=== PATIENT | female | born 1960 | race American Indian/Alaskan Native ===

== ENCOUNTER 2017-03-27 00:40 | Emergency (ER) | payer OTHER ==
[2017-03-27 00:51] VITALS: TEMP 98; BMI 33.3
[2017-03-27] MEDS ORDERED: Lidocaine 1% Inj (20ml) ONE (01:33)
--- NOTE | 2017-03-27 02:13 | ED PDOC ---
Arrival/HPI - General Historian: Patient - History of Present Illness Time/Duration: Prior to Arrival Symptom Onset: Sudden Symptom Course: Unchanged <Praneeth De Los Santos - Last Filed: 03/27/17 02:31> <Jp Rosario - Last Filed: 03/27/17 02:46> - General Chief Complaint: Abnormal Skin Integrity Time Seen by Provider: 03/27/17 02:07 - History of Present Illness Narrative History of Present Illness (Text): 57 female presents to the emergency department with a laceration. Pt states that she was baking and trying to open up a can when it slipped and cut the side of her R 5th finger. Denies taking anything at home for the pain. Denies any headache, dizziness, f/c, shortness of breath, chest pain, abd pain, n/v/d. (Praneeth De Los Santos) Past Medical History - Provider Review Nursing Documentation Reviewed: Yes - Reproductive Menopause: Yes - Cardiac Hx Cardiac Disorders: Yes Hx Hypertension: Yes - Pulmonary Hx Respiratory Disorders: Yes Hx Asthma: Yes - Neurological Hx Neurological Disorder: No - HEENT Hx HEENT Disorder: No - Renal Hx Renal Disorder: No - Endocrine/Metabolic Hx Endocrine Disorders: No - Hematological/Oncological Hx Blood Disorders: No - Integumentary Hx Dermatological Disorder: No - Musculoskeletal/Rheumatological Hx Musculoskeletal Disorders: Yes Hx Spinal Stenosis: Yes Other/Comment: tendonitis - Gastrointestinal Hx Gastrointestinal Disorders: Yes Other/Comment: hernia - Genitourinary/Gynecological Hx Genitourinary Disorders: No - Psychiatric Hx Psychophysiologic Disorder: No Hx Substance Use: No - Surgical History Hx Appendectomy: Yes Hx Orthopedic Surgery: Yes (right wrist) Other/Comment: Benign left breast mass removed. Myomectomy - Anesthesia Hx Anesthesia: Yes Hx Anesthesia Reactions: No <Praneeth De Los Santos - Last Filed: 03/27/17 02:31> Family/Social History Family/Social History: No Known Family HX Smoking Status: Never Smoked Hx Alcohol Use: No Hx Substance Use: No <Praneeth De Los Santos - Last Filed: 03/27/17 02:31> Allergies/Home Meds <Praneeth De Los Santos - Last Filed: 03/27/17 02:31> <Jp Rosario - Last Filed: 03/27/17 02:46> Allergies/Adverse Reactions: Allergies ciprofloxacin [From Cipro] Allergy (Verified 03/27/17 00:51) ANAPHYLAXIS Home Medications: Home Meds Medication Instructions Recorded Confirmed Albuterol HFA [Ventolin HFA 90 2 puff IH PRN PRN 03/27/17 03/27/17 mcg/actuation (8 g)] Review of Systems - Physician Review All systems were reviewed & negative as marked: Yes - Review of Systems Respiratory: absent: SOB, Cough Cardiovascular: absent: Chest Pain, Palpitations Gastrointestinal: absent: Abdominal Pain Skin: Laceration (R 5th digit ) <Praneeth De Los Santos - Last Filed: 03/27/17 02:31> Physical Exam Vital Signs Reviewed: Yes Temperature: Afebrile Blood Pressure: Hypertensive Pulse: Regular Respiratory Rate: Normal Appearance: Positive for: Well-Appearing, Non-Toxic, Comfortable Pain Distress: Mild Mental Status: Positive for: Alert and Oriented X 3 - Systems Exam Head: Present: Atraumatic, Normocephalic Pupils: Present: PERRL Extroacular Muscles: Present: EOMI Conjunctiva: Present: Normal Mouth: Present: Moist Mucous Membranes Neck: Present: Normal Range of Motion Respiratory/Chest: Present: Clear to Auscultation, Good Air Exchange. No: Respiratory Distress, Accessory Muscle Use Cardiovascular: Present: Regular Rate and Rhythm, Normal S1, S2. No: Murmurs Abdomen: Present: Normal Bowel Sounds. No: Tenderness, Distention, Peritoneal Signs Upper Extremity: Present: Normal Inspection, Tenderness (R hand 5th digit medial side aprox 2 cm clean laceration ). No: Cyanosis, Edema, Swelling, Erythema Lower Extremity: Present: Normal Inspection. No: Edema Skin: Present: Warm, Dry, Normal Color. No: Rashes Psychiatric: Present: Alert, Oriented x 3, Normal Insight, Normal Concentration <Praneeth De Los Santos - Last Filed: 03/27/17 02:31> Medical Decision Making <Praneeth De Los Santos - Last Filed: 03/27/17 02:31> <Jp Rosario - Last Filed: 03/27/17 02:46> ED Course and Treatment: Impression: 57 female presents to the emergency department with a laceration. Differential Diagnosis included but are not limited to: laceration Plan: - laceration repair via sutures - Reassess and disposition Progress Notes: Repaired laceration of R 5th digit with 5'0 Nylon. 5 interrupted sutures placed. Patient tolerated procedure well. Resting comfortably in bed. Denies any pain. On reevaluation the patient feels better and is in no acute distress. I have discussed the results and plan with the patient, who expresses understanding. Patient given the opportunity to ask question, all questions were answered and there is agreement with the plan to discharge the patient home . Patient is stable for discharge. Patient was instructed to follow up with physician/clinic in 7 days for suture removal. (Praneeth De Los Santos) 03/27/17 02:44 Patient seen and evaluated with resident. Agree with HPI, clinical findings, plan and treatment. A 57 year old female who presents to the emergency department for evaluation of laceration to right 5th digit s/p cut which she sustained while opening a can. Laceration was repaired by resident with 5 interrupted sutures. Patient was stable for discharge. Advised to present to emergency department or f/u with PMD after 7 days for suture removal. (Jp Rosario) - Medication Orders Current Medication Orders: Discontinued Medications Lidocaine HCl (Lidocaine 1% (20ml)) Confirm Administered Dose 20 ml .ROUTE .STK- MED ONE Stop: 03/27/17 01:34 Last Admin: 03/27/17 01:44 Dose: Tetanus/Reduced Diphtheria/Acell Pertussis (Boostrix Vaccine Inj) 0.5 ml IM .ONCE ONE Stop: 03/27/17 02:17 Last Admin: 03/27/17 02:29 Dose: 0.5 ml Procedure: Wound Repair - Time Out Time Out: Side verified, Site verified, Patient ID confirmed, Sterile procedures obs. - Consent Obtained Consent obtained: Verbal - Performed by Performed by: Mid-level Provider - Indications Indication(s):: Laceration - Location Finger:: Right, Little Shape:: Linear Dimensions Length cm: 2cm Depth:: Epidermis - Anesthetic Technique Anesthetic Technique: Local Local/Regional Anesthetic:: Lidocaine 1% - Debris Debris:: None - Irrigated Irrigated with ml of normal saline: 500 - Complexity Complexity:: Simple (one layer) - Wound repair method Sutures:: # (5), Size (5.0), Type (nylon ), Technique (interrupted ) - Patient tolerated procedure Patient Tolerated Procedure:: Well <Praneeth De Los Santos - Last Filed: 03/27/17 02:31> <Praneeth De Los Santos - Last Filed: 03/27/17 02:31> - PA / ORE TESTER / Resident Statement / has reviewed & agrees with the documentation as recorded. / has examined the patient and agrees with the treatment plan. <Jp Rosario - Last Filed: 03/27/17 02:46> - Scribe Statement Kristin Mota Provider Scribe Attestation: All medical record entries made by the Scribe were at my direction and personally dictated by me. I have reviewed the chart and agree that the record accurately reflects my personal performance of the history, physical exam, medical decision making, and the department course for this patient. I have also personally directed, reviewed, and agree with the discharge instructions and disposition. (Jp Rosario) Disposition/Present on Arrival - Present on Arrival Any Indicators Present on Arrival: No History of DVT/PE: No History of Uncontrolled Diabetes: No Urinary Catheter: No History of Decub. Ulcer: No History Surgical Site Infection Following: None - Disposition Have Diagnosis and Disposition been Completed?: Yes Disposition Time: 02:20 Patient Plan: Discharge <Praneeth De Los Santos - Last Filed: 03/27/17 02:31> <Jp Rosario - Last Filed: 03/27/17 02:46> - Disposition Diagnosis: Laceration of finger Disposition: HOME/ ROUTINE Condition: IMPROVED Additional Instructions: Tiana Rosenberg, thank you for letting us take care of you today. Your provider was Dr Palmer. You were treated for laceration to finger. The emergency medical care you received today was directed at your acute symptoms. If you were prescribed any medication, please fill it and take as directed. It may take several days for your symptoms to resolve. Return to the Emergency Department if your symptoms worsen, do not improve, or if you have any other problems. Please contact your doctor or call one of the physicians/clinics you have been referred to that are listed on the Patient Visit Information form that is included in your discharge packet. Bring any paperwork you were given at discharge with you along with any medications you are taking to your follow up visit. Our treatment cannot replace ongoing medical care by a primary care provider (PCP) outside of the emergency department. Thank you for allowing the [facility] team to be part of your care today. Wound care: change the dressing daily and may apply Bacitracin to affected area. Follow up with your PMD in 7 days for suture removal. If your symptoms worsen please coma back to the emergency department. Referrals: Tiffanie Rinaldi, [Primary Care Provider] - Follow up with primary
[2017-03-27] MEDS ORDERED: TDAP Vaccine 0.5 mL Syr IM ONE (02:16)
[2017-03-27 02:42] VITALS: BP 144/95; PULSE 60; RESP 18; O2SAT 98
== END 2017-03-27 02:43 | disposition home or self-care (01) ==
LOC: ED 00:40
DX: S61.216A Laceration without foreign body of right little finger without damage to nail, initial encounter (principal); W26.8XXA Contact with other sharp object(s), not elsewhere classified, initial encounter; Y93.G3 Activity, cooking and baking; Y92.89 Other specified places as the place of occurrence of the external cause; Z23 Encounter for immunization

== ENCOUNTER 2017-03-28 12:13 | Emergency (ER) | payer OTHER ==
[2017-03-28 12:13] VITALS: BMI 33.3
[2017-03-28 12:32] VITALS: BP 127/85; PULSE 80; RESP 17; TEMP 98.7; O2SAT 99
--- NOTE | 2017-03-28 12:54 | ED PDOC ---
Arrival/HPI - General Chief Complaint: Wound Check Time Seen by Provider: 03/28/17 12:48 - History of Present Illness Narrative History of Present Illness (Text): 03/28/17 12:54 57 y/o female, here for the wound check on the 5th digit on the rt. hand. Pt. stated that she heard "clicking" sound for 1-2 seconds earlier during the day which resolved, here for the wound check and evaluation, no headache or night, laceration sustained by the metal, no numbness or tingling, no other medical or psychological complaints. Past Medical History - Provider Review Nursing Documentation Reviewed: Yes - Cardiac Hx Cardiac Disorders: Yes Hx Hypertension: Yes - Pulmonary Hx Respiratory Disorders: Yes Hx Asthma: Yes - Neurological Hx Neurological Disorder: No - HEENT Hx HEENT Disorder: No - Renal Hx Renal Disorder: No - Endocrine/Metabolic Hx Endocrine Disorders: No - Hematological/Oncological Hx Blood Disorders: No - Integumentary Hx Dermatological Disorder: No - Musculoskeletal/Rheumatological Hx Musculoskeletal Disorders: Yes Hx Spinal Stenosis: Yes Other/Comment: tendonitis - Gastrointestinal Hx Gastrointestinal Disorders: Yes Other/Comment: hernia - Genitourinary/Gynecological Hx Genitourinary Disorders: No - Psychiatric Hx Psychophysiologic Disorder: No Hx Substance Use: No - Surgical History Hx Appendectomy: Yes Hx Orthopedic Surgery: Yes (right wrist) Other/Comment: Benign left breast mass removed. Myomectomy - Anesthesia Hx Anesthesia: Yes Family/Social History - Physician Review Nursing Documentation Reviewed: Yes Family/Social History: Unknown Family HX Smoking Status: Never Smoked Hx Alcohol Use: No Hx Substance Use: No Allergies/Home Meds Allergies/Adverse Reactions: Allergies ciprofloxacin [From Cipro] Allergy (Verified 03/28/17 12:28) ANAPHYLAXIS Home Medications: Home Meds Medication Instructions Recorded Confirmed Albuterol HFA [Ventolin HFA 90 2 puff IH PRN PRN 03/27/17 03/28/17 mcg/actuation (8 g)] Review of Systems - Review of Systems Constitutional: absent: Fatigue, Fevers Eyes: absent: Vision Changes ENT: absent: Hearing Changes Respiratory: absent: SOB, Cough Cardiovascular: absent: Chest Pain Gastrointestinal: absent: Abdominal Pain, Diarrhea, Nausea, Vomiting Skin: absent: Rash, Pruritis, Skin Lesions, Abscess, Ulcer, Cellulitis Neurological: absent: Headache, Dizziness, Focal Weakness, Gait Changes, Speech Changes, Facial Droop Psychiatric: absent: Anxiety, Depression, Suicidal Ideation Physical Exam Vital Signs Reviewed: Yes Vital Signs Temp Pulse Resp BP Pulse Ox 03/28/17 12:29 98.7 F 80 17 127/85 99 Temperature: Afebrile Blood Pressure: Normal Pulse: Regular Respiratory Rate: Normal Appearance: Positive for: Well-Appearing, Non-Toxic, Comfortable Pain Distress: None Mental Status: Positive for: Alert and Oriented X 3 - Systems Exam Head: Present: Atraumatic, Normocephalic Pupils: Present: PERRL Extroacular Muscles: Present: EOMI Conjunctiva: Present: Normal Mouth: Present: Moist Mucous Membranes Neck: Present: Normal Range of Motion Respiratory/Chest: Present: Clear to Auscultation, Good Air Exchange. No: Respiratory Distress, Accessory Muscle Use Cardiovascular: Present: Regular Rate and Rhythm, Normal S1, S2. No: Murmurs Abdomen: Present: Normal Bowel Sounds. No: Tenderness, Distention, Peritoneal Signs Back: Present: Normal Inspection Upper Extremity: Present: Normal Inspection, Other (Rt. hand: 5th MCPJ lateral aspect noted with 5 stiches, no bony tenderness or swelling, no audible clicking sound noted, wound healing well and dry, FROM without limitation, sensation intact, motor 5/5, +radial pulse, capillary refill< 2 seconds, neurovasclar intact. ). No: Cyanosis, Edema Lower Extremity: Present: Normal Inspection. No: Edema Neurological: Present: GCS=15, CN II-XII Intact, Speech Normal Skin: Present: Warm, Dry, Normal Color. No: Rashes Psychiatric: Present: Alert, Oriented x 3, Normal Insight, Normal Concentration Medical Decision Making ED Course and Treatment: 03/28/17 12:57 -xray -wound healing well and dry -Discharge home with education on keep the dressing dry and clean, follow up with your own pmd and hand specialist within 2 days, return to the ER for any new or worsening signs or symptoms. - PA / SECURITY SPECIALIST / Resident Statement MD/DO has reviewed & agrees with the documentation as recorded. Disposition/Present on Arrival - Present on Arrival Any Indicators Present on Arrival: No History of DVT/PE: No History of Uncontrolled Diabetes: No Urinary Catheter: No History of Decub. Ulcer: No History Surgical Site Infection Following: None - Disposition Have Diagnosis and Disposition been Completed?: Yes Diagnosis: Visit for wound check Disposition: HOME/ ROUTINE Disposition Time: 12:59 Patient Plan: Discharge Condition: GOOD Additional Instructions: Discharge home with education on keep the dressing dry and clean, follow up with your own pmd and hand specialist within 2 days, return to the ER for any new or worsening signs or symptoms. Referrals: [facility] at [facility] [place] [Outside] - Follow up with primary Errol Lee MD [Staff Provider] - Follow up with primary Forms: WORK NOTE
--- NOTE | 2017-03-28 13:31 | RAD ---
PROCEDURE: Right Hand Radiographs. HISTORY: 5th MCPJ laceration, hears clicking sound? COMPARISON: None available. FINDINGS: BONES: No acute displaced fracture. JOINTS: No dislocation. SOFT TISSUES: Unremarkable. No evidence of radiopaque foreign body. OTHER FINDINGS: None. IMPRESSION: No acute displaced fracture, dislocation, or significant joint effusion identified. If symptoms persist, or if there is continued clinical concern, x-ray follow-up in 7-10 days should be considered.
== END 2017-03-28 13:32 | disposition home or self-care (01) ==
LOC: ED 12:13
DX: Z51.89 Encounter for other specified aftercare (principal)

== ENCOUNTER 2017-04-04 20:51 | Emergency (ER) | payer OTHER ==
[2017-04-04 20:52] VITALS: BMI 33.3
[2017-04-04 20:56] VITALS: BP 145/98; PULSE 66; RESP 16; TEMP 98.6; O2SAT 99
--- NOTE | 2017-04-04 21:09 | ED PDOC ---
Arrival/HPI - General Chief Complaint: Suture/Staple Removal Time Seen by Provider: 04/04/17 20:53 Historian: Patient - History of Present Illness Narrative History of Present Illness (Text): 04/04/17 21:09 57 y.o. s/p laceration on 03/27/17 of the right pinky, which was sutured. She is here for suture removal. No fever or pus. Past Medical History - Cardiac Hx Cardiac Disorders: Yes Hx Hypertension: Yes - Pulmonary Hx Respiratory Disorders: Yes Hx Asthma: Yes - Neurological Hx Neurological Disorder: No - HEENT Hx HEENT Disorder: No - Renal Hx Renal Disorder: No - Endocrine/Metabolic Hx Endocrine Disorders: No - Hematological/Oncological Hx Blood Disorders: No - Integumentary Hx Dermatological Disorder: No - Musculoskeletal/Rheumatological Hx Musculoskeletal Disorders: Yes Hx Spinal Stenosis: Yes Other/Comment: tendonitis - Gastrointestinal Hx Gastrointestinal Disorders: Yes Other/Comment: hernia - Genitourinary/Gynecological Hx Genitourinary Disorders: No - Psychiatric Hx Psychophysiologic Disorder: No Hx Substance Use: No - Surgical History Hx Appendectomy: Yes Hx Orthopedic Surgery: Yes (right wrist) Other/Comment: Benign left breast mass removed. Myomectomy - Anesthesia Hx Anesthesia: Yes Family/Social History Family/Social History: No Known Family HX Smoking Status: Never Smoked Hx Alcohol Use: No Hx Substance Use: No Allergies/Home Meds Allergies/Adverse Reactions: Allergies ciprofloxacin [From Cipro] Allergy (Verified 04/04/17 20:54) ANAPHYLAXIS Home Medications: Home Meds Medication Instructions Recorded Confirmed Albuterol HFA [Ventolin HFA 90 2 puff IH PRN PRN 03/27/17 04/04/17 mcg/actuation (8 g)] Review of Systems - Review of Systems Constitutional: absent: Fevers Skin: Other (no pus) Physical Exam Vital Signs Temp Pulse Resp BP Pulse Ox 04/04/17 20:54 98.6 F 66 16 145/98 H 99 Temperature: Afebrile Blood Pressure: Normal Pulse: Regular Respiratory Rate: Normal Appearance: Positive for: Well-Appearing, Non-Toxic, Comfortable Pain Distress: None Mental Status: Positive for: Alert and Oriented X 3 - Systems Exam Head: Present: Atraumatic, Normocephalic Upper Extremity: Present: Other (4 sutures in wound which is c/d/i on ulnar side of proximal phalanx of R frederick). No: Cyanosis, Edema Medical Decision Making ED Course and Treatment: 04/04/17 21:08 Patient here for suture removal; wound c/d/i - sutures removed without incident and steri-strips placed - will d/c. Disposition/Present on Arrival - Present on Arrival Any Indicators Present on Arrival: No History of DVT/PE: No History of Uncontrolled Diabetes: No Urinary Catheter: No History of Decub. Ulcer: No History Surgical Site Infection Following: None - Disposition Have Diagnosis and Disposition been Completed?: Yes Diagnosis: Encounter for removal of sutures Disposition: HOME/ ROUTINE Disposition Time: 21:05 Patient Plan: Discharge Condition: GOOD Discharge Instructions (ExitCare): Stitches Removal (ED) Additional Instructions: Maintain steri-strips till they fall off. Keep wound clean. Follow up with your primary care doctor. Return to the emergency department if any new concerning symptoms. Referrals: Tiffanie Rinaldi, [Primary Care Provider] - Follow up with primary
== END 2017-04-04 21:15 | disposition home or self-care (01) ==
LOC: ED 20:51
DX: Z48.02 Encounter for removal of sutures (principal)

== ENCOUNTER 2018-11-11 06:06 | Emergency (ER) | payer OTHER ==
[2018-11-11 07:36] VITALS: BMI 34.9
[2018-11-11 07:44] VITALS: RESP 18; TEMP 98.7
[2018-11-11] MEDS ORDERED: Sodium Chloride 0.9% 1,000 ML IV STA (07:55)
--- NOTE | 2018-11-11 08:31 | ED PDOC ---
Arrival/HPI - General Chief Complaint: Abdominal Pain Time Seen by Provider: 11/11/18 07:48 Historian: Patient - History of Present Illness Narrative History of Present Illness (Text): 11/11/18 08:27 58 year old female, with no significant past medical history, who presents to the emergency department complaining of LUQ and LLQ abdominal pain x this morning. Patient notes associated intermittent hematuria, urinary frequency, and nausea x 2 days. Patient denies any fever, chills, vomiting, diarrhea, dysuria, back pain, or any other complaints. Time/Duration: < week Symptom Onset: Gradual Symptom Course: Unchanged Activities at Onset: Light Context: Home Associated Symptoms (Text): 11/11/18 08:48 Severe left upper quadrant and left lower quadrant abdominal pain beginning this morning. No radiation. Nausea but no vomiting or diarrhea. Urinary urgency. Some hematuria 2 days ago. No fever or chills. No injury or trauma. She has never experienced this previously. Past Medical History - Provider Review Nursing Documentation Reviewed: Yes - Cardiac Hx Cardiac Disorders: Yes Hx Hypertension: Yes - Pulmonary Hx Respiratory Disorders: Yes Hx Asthma: Yes - Neurological Hx Neurological Disorder: No - HEENT Hx HEENT Disorder: No - Renal Hx Renal Disorder: No - Endocrine/Metabolic Hx Endocrine Disorders: No - Hematological/Oncological Hx Blood Disorders: No - Integumentary Hx Dermatological Disorder: No - Musculoskeletal/Rheumatological Hx Musculoskeletal Disorders: Yes Hx Spinal Stenosis: Yes Other/Comment: tendonitis - Gastrointestinal Hx Gastrointestinal Disorders: Yes Other/Comment: hernia - Genitourinary/Gynecological Hx Genitourinary Disorders: No - Psychiatric Hx Psychophysiologic Disorder: No Hx Substance Use: No - Surgical History Hx Appendectomy: Yes Hx Orthopedic Surgery: Yes (right wrist) Other/Comment: Benign left breast mass removed. Myomectomy - Anesthesia Hx Anesthesia: Yes Family/Social History - Physician Review Nursing Documentation Reviewed: Yes Family/Social History: Unknown Family HX Smoking Status: Never Smoked Hx Alcohol Use: No Hx Substance Use: No Allergies/Home Meds Allergies/Adverse Reactions: Allergies ciprofloxacin [From Cipro] Allergy (Verified 11/11/18 07:36) ANAPHYLAXIS Home Medications: Home Meds Medication Instructions Recorded Confirmed Albuterol HFA [Ventolin HFA 90 2 puff IH PRN PRN 03/27/17 11/11/18 mcg/actuation (8 g)] Review of Systems - Physician Review All systems were reviewed & negative as marked: Yes - Review of Systems Constitutional: absent: Fatigue, Fevers Respiratory: absent: SOB Cardiovascular: absent: Chest Pain Gastrointestinal: Abdominal Pain (LUQ and LLQ pain), Nausea. absent: Diarrhea, Vomiting Genitourinary Female: Frequency, Hematuria. absent: Dysuria, Urine Output Changes Physical Exam Vital Signs Reviewed: Yes Vital Signs Temp Pulse Resp BP Pulse Ox 11/11/18 07:43 98.7 F 71 18 168/111 H 96 Temperature: Afebrile Blood Pressure: Hypertensive Pulse: Regular Respiratory Rate: Normal Appearance: Positive for: Uncomfortable, Other (writhing about) Pain Distress: Severe Mental Status: Positive for: Alert and Oriented X 3 - Systems Exam Head: Present: Atraumatic, Normocephalic Pupils: Present: PERRL Extroacular Muscles: Present: EOMI Mouth: Present: Moist Mucous Membranes Pharnyx: No: ERYTHEMA, EXUDATE, TONSILS ENLARGED Respiratory/Chest: Present: Clear to Auscultation, Good Air Exchange Cardiovascular: Present: Regular Rate and Rhythm Abdomen: No: Tenderness, Distention, Rebound, Guarding Back: Present: Normal Inspection. No: CVA Tenderness, Midline Tenderness, Paraspinal Tenderness Upper Extremity: Present: Normal Inspection. No: Cyanosis, Edema Lower Extremity: Present: Normal Inspection. No: Edema Neurological: Present: GCS=15, CN II-XII Intact, Speech Normal, Motor Func Grossly Intact Skin: Present: Warm, Dry, Normal Color. No: Rashes Psychiatric: Present: Alert, Oriented x 3, Normal Insight, Normal Concentration Medical Decision Making ED Course and Treatment: 11/11/18 08:33 Impression: 58 year old female presents to the Emergency department complaining of LUQ and LLQ pain, hematuria, urinary frequency, and nausea. Plan: -- CT Abd/Pelvis -- Labs -- Sodium Chloride -- Toradol -- Zofran -- UA -- Reassess and disposition Progress Notes: 11/11/18 09:[address] scan is read by the radiologist shows a 3 mm left UVJ stone with mild hydronephrosis. - RAD Interpretation Radiology Orders: 11/11/18 07:55 ABD & PELVIS W/O PO OR IV CONT [CT] Stat - Medication Orders Current Medication Orders: Sodium Chloride (Sodium Chloride 0.9%) 1,000 mls @ 1,000 mls/hr IV .Q1H STA Stop: 11/11/18 08:54 Last Admin: 11/11/18 08:20 Dose: 1,000 mls/hr eMAR Start Stop Document 11/11/18 08:20 EQ (Rec: 11/11/18 08:20 EQ [id number]) Intravenous Solution Start Date 11/11/18 Start Time 08:20 Discontinued Medications Ketorolac Tromethamine (Toradol) 15 mg IVP STAT STA Stop: 11/11/18 07:56 Last Admin: 11/11/18 08:19 Dose: 15 mg MAR Pain Assessment Document 11/11/18 08:19 EQ (Rec: 11/11/18 08:19 EQ [id number]) Pain Reassessment Is this a pain reassessment? No Sleep Is patient sleeping during reassessment? No Presence of Pain Presence of Pain Yes IVP Administration Document 11/11/18 08:19 EQ (Rec: 11/11/18 08:19 EQ [id number]) Charges for Administration # of IVP Administrations 1 Ondansetron HCl (Zofran Inj) 4 mg IVP STAT STA Stop: 11/11/18 07:56 Last Admin: 11/11/18 08:19 Dose: 4 mg IVP Administration Document 11/11/18 08:19 EQ (Rec: 11/11/18 08:19 EQ [id number]) Charges for Administration # of IVP Administrations 1 - Scribe Statement The provider has reviewed the documentation as recorded by the José Miguelibelliott Hightower All medical record entries made by the José Miguelibelliott were at my direction and personally dictated by me. I have reviewed the chart and agree that the record accurately reflects my personal performance of the history, physical exam, medical decision making, and the department course for this patient. I have also personally directed, reviewed, and agree with the discharge instructions and disposition. Disposition/Present on Arrival - Present on Arrival Any Indicators Present on Arrival: No History of DVT/PE: No History of Uncontrolled Diabetes: No Urinary Catheter: No History of Decub. Ulcer: No History Surgical Site Infection Following: None - Disposition Have Diagnosis and Disposition been Completed?: Yes Diagnosis: Renal colic on left side, Kidney stone on left side Disposition: HOME/ ROUTINE Disposition Time: 10:54 Patient Plan: Discharge Condition: IMPROVED Discharge Instructions (ExitCare): Kidney Stones in Adults Prescriptions: oxyCODONE/Acetaminophen [Percocet 5/325 mg Tab] 1 ea PO Q6 #15 tab Ondansetron ODT [Zofran ODT] 4 mg PO Q6 #20 odt Referrals: Oumar Yee MD [Staff Provider] - Follow up with primary Forms: [employer] [facility] (Persian), WORK NOTE
[2018-11-11 08:36] LABS: BASO # 0.01 K/mm3 (0.0-2.0); BASO % 0.2 % (0.0-3.0); EOS % 0.6 % (1.5-5.0); GRAN # 2.87 (1.4-6.5); GRAN % 57.8 % (50.0-68.0); HEMOGLOBIN 14.5 g/dL (12.0-16.0); LYMPH # 1.6 (1.2-3.4); LYMPH % 33.1 % (22.0-35.0); MEAN CELL VOLUME 87.2 fl (80.0-105.0); MEAN CORPUSCULAR HEMOGLOBIN 28.1 pg (25.0-35.0); MEAN CORPUSCULAR HGB CONC 32.2 g/dl (31.0-37.0); MEAN PLATELET VOLUME 10.7 fl (7.0-11.0); MONO # 0.4 (0.1-0.6); MONO % 8.3 % (1.0-6.0); RBC 5.16 10^6/uL (3.5-6.1); RED CELL DISTRIBUTION WIDTH 13.3 % (11.5-14.5)
[2018-11-11 08:55] LABS: ALB/GLOB RATIO 1.4 (1.1-1.8); ALBUMIN 4.7 g/dL (3.0-4.8); ALT/SGPT 25 U/L (7-56); AST/SGOT 32 U/L (14-36); BLOOD UREA NITROGEN 16 mg/dL (7-21); CALCIUM 9.7 mg/dL (8.4-10.5); GFR NON-AFRICAN AMERICAN > 60; LIPASE 72 U/L (23-300)
--- NOTE | 2018-11-11 09:45 | CT ---
Date of service: 11/11/2018 PROCEDURE: CT Abdomen and Pelvis without intravenous contrast HISTORY: left stone run COMPARISON: None. TECHNIQUE: Technique. Contrast dose: Radiation dose: Total exam DLP = 937.38 mGy-cm. This CT exam was performed using one or more of the following dose reduction techniques: Automated exposure control, adjustment of the mA and/or kV according to patient size, and/or use of iterative reconstruction technique. FINDINGS: LOWER THORAX: Unremarkable. LIVER: Unremarkable. No gross lesion or ductal dilatation. GALLBLADDER AND BILE DUCTS: Unremarkable. PANCREAS: Unremarkable. No gross lesion or ductal dilatation. SPLEEN: Unremarkable. ADRENALS: Unremarkable. No mass. KIDNEYS AND URETERS: Mild left hydronephrosis with punctate calculus in the upper pole the left kidney. Obstructive calculus just distal to the left UVJ measuring roughly 3 millimeters. VASCULATURE: Unremarkable. No aortic aneurysm. No aortic atherosclerotic calcification or mural plaque present. BOWEL: Extensive colonic diverticulosis. APPENDIX: Unremarkable. Normal appendix. PERITONEUM: Unremarkable. No free fluid. No free air. LYMPH NODES: Unremarkable. No enlarged lymph nodes. BLADDER: Unremarkable. REPRODUCTIVE: Unremarkable. BONES: No acute fracture. OTHER FINDINGS: Right spigelian hernia containing bowel loops. IMPRESSION: Mild left hydronephrosis with punctate calculus in the upper pole the left kidney. Obstructive calculus just distal to the left UVJ measuring roughly 3 millimeters.
[2018-11-11 10:52] LABS: URINE APPEARANCE CLOUDY (CLEAR); URINE BILIRUBIN SMALL (NEGATIVE); URINE BLOOD LARGE (NEGATIVE); URINE COLOR LIGHT BROWN (YELLOW); URINE GLUCOSE (UA) NEGATIVE (NEGATIVE); URINE LEUKOCYTE ESTERASE NEGATIVE Leu/uL (NEGATIVE); URINE PROTEIN 100 mg/dL (<30 mg/dL); URINE RBC TNTC /hpf (0-2)
[2018-11-11 10:53] LABS: URINE BACTERIA LARGE /hpf
[2018-11-11 11:20] VITALS: BP 143/75; PULSE 62; O2SAT 97
== END 2018-11-11 11:25 | disposition home or self-care (01) ==
LOC: ED 06:06
DX: N20.0 Calculus of kidney (principal); I10 Essential (primary) hypertension
CPT/HCPCS: 74176; 80053; 81001; 83690; 83735; 85025; 87086; 96374; 96375; 99283; J1885; J2405; J7030